=== PATIENT | male | born 1970 | race Two or more races ===

== ENCOUNTER 2021-12-03 06:10 | Day surgery (SDC) | payer OTHER ==
[~2021-12-03] VITALS: Ht 190.5 cm; Wt 91.2 kg
[2021-12-03] MEDS ORDERED: SUCCINYLCHOLINE CHLORIDE 20 MG/ML 10ML VIAL IV ONE (06:54)
[2021-12-03] MEDS ORDERED: ROCURONIUM 10MG/ML 10ML VIAL IV ONE (06:54)
[2021-12-03] MEDS ORDERED: ceFAZolin 1GM/50ML 100 ML IV ONE (07:04)
[2021-12-03] MEDS ORDERED: fentaNYL CITRATE 100 MCG/2 ML VL ONE (07:05)
[2021-12-03] MEDS ORDERED: BUPIVACAINE/DEXTROSE MPF 0.75% 2 ML AMP IT ONE (07:06)
[2021-12-03] MEDS ORDERED: EPINEPHrine HCL 1 MG/1 ML AMP ONE (07:06)
[2021-12-03] MEDS ORDERED: PROPOFOL 10 MG/ML 20 ML IV ONE ×3 (07:06→10:01)
[2021-12-03] MEDS ORDERED: ONDANSETRON HCL 4 MG/2 ML VIAL ONE (07:06)
[2021-12-03] MEDS ORDERED: DexAMETHasone SOD PHOS 10MG/1ML VIAL INJ ONE (07:06)
[2021-12-03] MEDS ORDERED: SODIUM CHLORIDE LOCK 10 ML ONE (07:06)
[2021-12-03] MEDS ORDERED: MIDAZOLAM HCL 2MG/2ML 2ml VIAL (1mg/ml) ONE (07:06)
[2021-12-03] MEDS ORDERED: BUPIVACAINE HCL 50 ML ONE (07:19)
[2021-12-03] MEDS ORDERED: NEOMYCIN-BACITRACIN-POLYM 15GM TOP OINT TOP ONE (09:22)
[2021-12-03] MEDS ORDERED: MORPHINE SULFATE 4 MG/ML SYR/VIAL IV PRN (09:30)
[2021-12-03] MEDS ORDERED: KETOROLAC TROMETH 30 MG/ML 1ML VIAL IV ONE (09:30)
[2021-12-03] MEDS ORDERED: METOCLOPRAMIDE HCL 5MG/ml INJ 2ml VIAL IV PRN (09:30)
[2021-12-03] MEDS: HYDROmorphone HCL 2 MG/ML VL/or syr IV PRN ×3 (11:00→11:45)
[2021-12-03 14:00] VITALS: BP 122/73
[2021-12-03] MEDS ORDERED: HYDR-4072 PO (14:39)
[2021-12-03] MEDS ORDERED: ASPI-498 OR (15:04)
== END 2021-12-03 16:10 | disposition home or self-care (01) ==
LOC: SUR 06:10
PROVIDERS: ATTEND Orthopaedic Surgery Sports Medicine
DX: S83.511A Sprain of anterior cruciate ligament of right knee, initial encounter (principal); S83.211A Bucket-handle tear of medial meniscus, current injury, right knee, initial encounter; S83.281A Other tear of lateral meniscus, current injury, right knee, initial encounter; M94.261 Chondromalacia, right knee; I10 Essential (primary) hypertension; E78.5 Hyperlipidemia, unspecified; Z20.822 Contact with and (suspected) exposure to COVID-19; X58.XXXA Exposure to other specified factors, initial encounter; Y93.89 Activity, other specified; Y92.89 Other specified places as the place of occurrence of the external cause; Y99.8 Other external cause status
CPT/HCPCS: 29881; 29882; 29888; 73560; 76000; C1713; C1762; J0171; J0330; J0690; J1100; J1170; J2250; J2405; J2704; J2765; J3010; J3490